=== PATIENT | male | born 1945 ===

== ENCOUNTER 2017-02-19 22:13 | Inpatient (IN) | payer OTHER, BC ==
[2017-02-19] MEDS ORDERED: ONDANSETRON DISINTEGRATING 4 MG TAB ONE ×2 (22:24→22:36)
[2017-02-19] MEDS ORDERED: ACETAMINOPHEN 500 MG TAB PO ONE (22:34)
[2017-02-19] MEDS ORDERED: ONDANSETRON DISINTEGRATING 4 MG TAB PO ONE (22:34)
[2017-02-19] MEDS ORDERED: ACETAMINOPHEN 500 MG TAB ONE (22:36)
[2017-02-19] MEDS ORDERED: ONDANSETRON 4 MG/2 ML VIAL IVP ONE (22:56)
--- NOTE | 2017-02-19 23:03 | EDPHY ---
H & P Stated Complaint: dizzy, MOSER, urinary freq, dribbling urine, N/V x12h, musc aches Source: Patient, Family Exam Limitations: No limitations - Personal History Current Tetanus/Diphtheria Vaccine: Yes Current Tetanus Diphtheria and Acellular Pertussis (TDAP): Yes Tetanus Vaccine Date: 2009 - Medical/Surgical History Hx Asthma: No Hx Chronic Respiratory Disease: No Hx Diabetes: Yes Hx Cardiac Disease: Yes Hx Renal Disease: No Hx Cirrhosis: No Hx Alcoholism: No Hx HIV/AIDS: No Hx Splenectomy or Spleen Trauma: No Other PMH: divirticulitis, DM, hypertension, enlarged heart, kidney stone HPI/ROS: CHIEF COMPLAINT: Fever, urinary frequency, vomiting, dizziness HISTORY OF PRESENT ILLNESS: Patient complains of sudden onset of fever, urinary frequency, dysuria, dizziness, nausea vomiting. This started sometime today. He has a T-max 102. No chest pain. Some mild headache. No neck pain or stiffness. No shortness of breath. No cough. No abdominal pain. He has been frequently urinating with some dribbling in between episodes of urination. No bright red blood in it. No bloody stools or emesis. The vomiting and nausea worse with change of position of the head. Headache is minimal and not the worst headache of his life. His denies any facial droop or slurred speech. No unilateral complaints. No constipation or diarrhea. No trauma or injury. No other associated complaints or modifying factors. REVIEW OF SYSTEMS: Ten systems reviewed and are negative unless otherwise noted in the HPI PAST MEDICAL HISTORY: Diabetes, dyslipidemia, hypertension, BPH SOCIAL HISTORY: Nonsmoker. Lives at home with his FAMILY HISTORY: Noncontributory EXAMINATION General Appearance: Alert, no distress, actively vomiting. Ill appearing. Head: normocephalic, atraumatic Eyes: Pupils equal and round, no conjunctival pallor or injection ENT, Mouth: Mucous membranes moist. Uvula midline. Airway is widely patent. Neck: Normal inspection, supple, non-tender. Trachea midline. Respiratory: Lungs are clear to auscultation. No wheezing, rhonchi or crackles. Cardiovascular: Regular rate and rhythm. No murmur. Pulses intact distally. Gastrointestinal: Obese Abdomen is soft and nontender. No distension rigidity. No CVA tenderness. Neurological: GCS 15. A&O, nonfocal, normal gait. No pronator drift. No dysmetria. Skin: Warm and dry, no rash. No petechiae or purpura. Extremities: Nontender, no pedal edema Psychiatric: Mood and affect normal DIFFERENTIAL DIAGNOSES: Including but not limited to sepsis, UTI, vertigo, stroke, pneumonia, enteritis , diverticulitis, colitis, gastroenteritis, pyelonephritis MDM: 10:58 p.m. Dizziness, nausea vomiting, fever, urinary frequency and dysuria. Patient was tachycardic and febrile, thus I did immediately order sepsis workup. This includes blood cultures, lactic acid, urine culture, chest x-ray. He is not hypotensive. He is not currently tachypneic. He was actively vomiting with change of position of his head. He has no meningismus. He has no chest pain. I did discuss the case immediately with Dr. Alarcon, and I notified her that he does meet SIRS criteria and she should evaluate the patient. She is currently at bedside with him at this time. 11:20 p.m. Chest x-ray does reveal mild congestive heart failure, thus we will proceed cautiously with IV fluid until the lactic acid returns. Plan for DC the IV fluid if the lactic acid is normal. 12:10 a.m. Leukocytosis with no definite pneumonia. Troponin is very slightly elevated but he still complains of no chest pain of any kind. I suspect this is due to the heart failure as his BNP is greater than a 1000. There is some evidence of edema on the chest x-ray. Lactic acid was 2.2 initially, we will recheck this after the 1st L IV fluid. Urinalysis is pending as he has not been able to urinate. I have ordered a quick cath for the patient. Plan for Rocephin following the urine and urine culture. Discussed the case with Dr. Cesar. He will admit the patient to his service. Monitor the urinalysis for results. If this is negative will consider CT scan of the abdomen and pelvis. He remains normotensive with a nausea but no active vomiting. No acute distress. No encephalopathy. SUPERVISION: Patient was evaluated in conjunction with the supervising physician. Please see their note for details. (Omar Armstrong) Constitutional: Initial Vital Signs Temperature (C) 101.3 F H 02/19/17 22:15 Heart Rate 110 H 02/19/17 22:15 Respiratory Rate 18 02/19/17 22:15 Blood Pressure 151/105 H 02/19/17 22:15 O2 Sat (%) 92 02/19/17 22:15 O2 Delivery Mode Nasal Cannula O2 (L/minute) 2 Allergies/Adverse Reactions: winter chromate Allergy (Severe, Uncoded 01/27/12 16:32) STOPPED BREATHING Home Medications: Medication Instructions Recorded Allopurinol [Allopurinol 300 MG 300 mg PO BID 08/30/13 (RX)] Aspirin [Aspirin 81mg (OTC)] 81 mg PO DAILY 08/30/13 Carvedilol [Coreg (RX)] 25 mg PO BIDMEAL 08/30/13 Cyanocobalamin (Vitamin B-12) 1,000 mcg PO DAILY 08/30/13 [Vitamin B-12] Amoxicillin 2,000 mg PO ONCE PRN 02/20/17 Atorvastatin Calcium [Lipitor 10 10 mg PO HS 02/20/17 mg (*)] FLUoxetine [Prozac 20 MG (*)] 40 mg PO DAILY 02/20/17 Herbals/Supplements -Info Only 1 ea PO DAILY 02/20/17 Insulin Glargine,Hum.rec.anlog 100 unit SQ HS 02/20/17 [Basaglar Kwikpen U-100] Insulin Lispro [humALOG LISPRO 100 30 unit SC TIDMEAL 02/20/17 units/ml (*)] Lisinopril [Zestril 30 mg] 30 mg PO DAILY 02/20/17 Tamsulosin HCl [Flomax 0.4 MG (*)] 0.4 mg PO DAILY 02/20/17 Zolpidem Tartrate [Zolpidem 6.25 mg PO HS 02/20/17 Tartrate ER] amLODIPine BESYLATE [Amlodipine 5 mg PO DAILY 02/20/17 Besylate] Medical Decision Making Other Provider: ED PA DICTATION I evaluated and participated in the management of the patient. I also evaluated the patient independently. My co-signature indicates that I have reviewed this chart and I agree with the findings and plan of care as documented. My personal H&P findings include: This is a 71-year-old man with multiple medical problems who presents with fever, weakness, irritative voiding symptoms. He also has associated dizziness with positional changes. I have examined him and he has a nontender abdomen. He likely has urinary tract infection. He could have a concomitant CHF exacerbation. He will be admitted to the hospitalist service. (Latesha Alarcon) - Data Points Laboratory Results: Laboratory Results 02/19/17 23:05 02/19/17 23:05 Medications Given: Discontinued Medications Acetaminophen (Tylenol) 1,000 mg PO EDNOW ONE Stop: 02/19/17 22:35 Last Admin: 02/19/17 22:43 Dose: 1,000 mg Sodium Chloride (Ns) 1,000 mls @ 0 mls/hr IV ONCE ONE PRN Reason: Wide Open Stop: 02/19/17 23:16 Last Admin: 02/19/17 23:15 Dose: 1,000 mls Ceftriaxone Sodium/Dextrose (Rocephin 1 Gm (Premix)) 50 mls @ 100 mls/hr IV EDNOW ONE PRN Reason: Protocol Stop: 02/20/17 00:36 Last Admin: 02/20/17 00:35 Dose: 50 mls Ceftriaxone Sodium/Dextrose (Rocephin 1 Gm (Premix)) 50 mls @ 100 mls/hr IV DAILY GRADY PRN Reason: Protocol Stop: 03/22/17 08:59 Last Admin: 02/20/17 10:02 Dose: 50 mls Insulin Human Lispro (Humalog Lispro) 6 unit SC ONCE ONE Stop: 02/20/17 22:01 Last Admin: 02/20/17 21:59 Dose: 6 units Ondansetron HCl (Zofran Odt) 8 mg PO EDNOW ONE Stop: 02/19/17 22:35 Last Admin: 02/19/17 22:43 Dose: 8 mg Ondansetron HCl (Zofran) 4 mg IVP EDNOW ONE Stop: 02/19/17 22:57 Last Admin: 02/19/17 23:12 Dose: 4 mg Departure - Departure Disposition: [facility] Inpatient Acute Clinical Impression: Urinary tract infection Qualifiers: Urinary tract infection type: acute cystitis Hematuria presence: without hematuria Qualified Code(s): N30.00 - Acute cystitis without hematuria Sepsis Qualifiers: Sepsis type: sepsis due to unspecified organism Qualified Code(s): A41.9 - Sepsis, unspecified organism Condition: Good
--- NOTE | 2017-02-19 23:12 | CPEKG ---
Heart Rate: 70 RR Interval: 857 P-R Interval: 164 QRSD Interval: 154 QT Interval: 444 QTC Interval: 480 P Bishop: 51 QRS Bishop: -87 T Wave Bishop: 83 EKG Severity - ABNORMAL ECG - EKG Impression: SINUS RHYTHM EKG Impression: SUPRAVENTRICULAR BIGEMINY EKG Impression: RBBB AND LAFB EKG Impression: PROBABLE LEFT VENTRICULAR HYPERTROPHY Electronically Signed By: Latesha Alarcon 20-Feb-2017 00:52:50
[2017-02-19] MEDS ORDERED: NS 1,000 ML IV ONE (23:15)
[2017-02-19 23:37] LABS: % IMMATURE GRANULYOCYTES 0.4 % (0.0-1.1); ABSOLUTE IMMATURE GRANULOCYTES 0.07 10^3/uL (0.00-0.10); ADD DIFF? NO; ADD MORPH? NO; ADD SCAN? NO; ATYPICAL LYMPHOCYTE FLAG 10 (0-99); FRAGMENT RBC FLAG 0 (0-99); HEMATOCRIT 44.9 % (40.0-51.0); HEMOGLOBIN 15.3 g/dL (13.7-17.5); LEFT SHIFT FLG 10 (0-99); LIPEMIA HEMOLYSIS FLAG 90 (0-99); MEAN CELL HEMOGLOBIN CONCENTR. 34.1 g/dL (32.4-36.7); MEAN CELL VOLUME 93.9 fL (81.5-99.8); MEAN PLATELET VOLUME 10.5 fL (8.7-11.7); PLATELET CLUMPS FLAG 10 (0-99); PLATELET COUNT 242 10^3/uL (150-400); RED BLOOD CELL COUNT 4.78 10^6/uL (4.40-6.38); RED CELL DISTRIBUTION WIDTH 13.5 % (11.5-15.2)
[2017-02-19 23:46] LABS: INR 1.12 (0.83-1.16); PROTIME(PATIENT) 14.3 SEC (12.0-15.0)
[2017-02-19 23:47] LABS: APTT 33.6 SEC (23.0-38.0)
[2017-02-19 23:50] LABS: ANION GAP 15 mEq/L (8-16); CARBON DIOXIDE 20 mEq/l (22-31); CHLORIDE 101 mEq/L (97-110); CREATININE 1.2 mg/dL (0.7-1.3); GLUCOSE 190 mg/dL (70-100); POTASSIUM 4.4 mEq/L (3.5-5.2); SODIUM 136 mEq/L (134-144)
[2017-02-19 23:51] LABS: ALANINE AMINOTRANSFERASE 38 IU/L (21-72); ALBUMIN 4.3 g/dL (3.5-5.0); ALKALINE PHOSPHATASE 93 IU/L (38-126); ASPARTATE AMINOTRANSFERASE 23 IU/L (17-59); BILIRUBIN,TOTAL 1.1 mg/dL (0.1-1.4); BILIRUBIN-CONJUGATED 0.3 mg/dL (0.0-0.5); BILIRUBIN-UNCONJUGATED 0.8 mg/dL (0.0-1.1); CALCIUM 10.4 mg/dL (8.5-10.4); GLOMERULAR FILTRATION RATE 59; TOTAL PROTEIN 8.1 g/dL (6.3-8.2)
[2017-02-20 00:02] LABS: TROPONIN I 0.063 ng/mL (0-0.034)
[2017-02-20 00:11] LABS: LACGHOST ORDER
[2017-02-20 00:46] LABS: COLOR YELLOW; LEUKOCYTE ESTERASE,URINE 3+ (NEGATIVE); NITRITE,URINE POSITIVE (NEGATIVE)
[2017-02-20] MEDS ORDERED: oxyCODONE IR 5 MG TAB PO PRN (00:46)
[2017-02-20] MEDS ORDERED: ONDANSETRON 4 MG/2 ML VIAL IVP PRN (00:46)
[2017-02-20] MEDS ORDERED: ONDANSETRON DISINTEGRATING 4 MG TAB PO PRN (00:46)
[2017-02-20 01:06] LABS: BACTERIA 3+ /hpf (NONE SEEN); MUCUS TRACE /lpf (NONE-1+); RBC,URINE 50-182 /hpf (0-3); WBC,URINE 50-182 /hpf (0-3)
[2017-02-20] MEDS ORDERED: D50W 25 GM/50 ML SYR IVP PRN (01:10)
--- NOTE | 2017-02-20 01:48 | GHP ---
[f rep st] HISTORY AND PHYSICAL DATE OF ADMISSION: 02/20/2017 CHIEF COMPLAINT: Fever. HISTORY OF PRESENT ILLNESS: This is a 71-year-old man with a history of diabetes, BPH, who presents with fever. This started acutely this evening. It was associated with almost constant dribbling o f urine, which is atypical for him. He does take medications for BPH. Also associated with dizzine ss as well as a few rounds of nonbloody emesis. He notes that he has no abdominal pain. He does scherer ve a headache but no neck pain or pain in his neck when he moves his head. He coughed once, but thi s has not been a persistent issue for him. He is not having any chest pain, either. The patient is taking amoxicillin for recent dental extraction. PAST MEDICAL/SURGICAL HISTORY: 1. Diabetes mellitus type 2. 2. Diverticulitis. 3. Fatty liver. 4. Hypertension. 5. Gout. 6. BPH. 7. "Enlarged heart.". MEDICATIONS: Please see medication reconciliation. ALLERGIES: Zinc chromate. SOCIAL HISTORY: Does not drink or smoke. FAMILY HISTORY: Both of his parents are . REVIEW OF SYSTEMS: 10-point review of systems is conducted and is negative except per HPI. PHYSICAL EXAMINATION: VITAL SIGNS: Initial vitals showed blood pressure of 151/105, heart rate 110 , respiration rate 18, satting 92% on room air. Temperature is 38.5. GENERAL: The patient is a pl easant obese man who appears comfortable, in no acute distress. HEENT: Shows mucous membranes to b e moist. CARDIOVASCULAR : Regular rate and rhythm. There are no murmurs, rubs, or gallops. PULMO NARY: Shows lungs to be clear to auscultation bilaterally. ABDOMEN: Soft. He is nontender to pal pation throughout all 4 quadrants. He has normal bowel sounds. This is an obese abdomen. SKIN: No rash. : No Dave. NEUROLOGIC: Shows him to be alert and oriented x3. He is moving all extrem ities. PSYCHIATRIC: Shows him to have a normal mood and affect. [place]S: [place] [address]. INR is 1.1. Initial lactate was 2.2, down to 1.4 on repeat. Bicarb 2 0, glucose 190. Troponin 0.063. BNP is 1100. Urinalysis shows positive nitrates, 2+ blood, 3+ cristino kocyte esterase. DATA: 1. I discussed this with Omar Armstrong in the emergency department. We will admit to med/surg with telemetry monitoring. 2. EKG, which I personally viewed and interpreted, shows him to have a right bundle branch block an d left anterior fascicular block. This is sinus rhythm. He is having premature beats. He is in wh at appears to be atrial bigeminy. 3. Chest x-ray, which I personally viewed and interpreted, shows borderline enlarged heart. He has engorged pulmonary vasculature. IMPRESSION AND PLAN: A 71-year-old man presents with sepsis. 1. Sepsis: No evidence of shock. He has received 1 L of fluid with marked improvement in his levar ls. I will not give him any more fluid if he is hemodynamically stable, lung moore already show allen rderline congestive heart failure. Source is presumed to be urine at this point. 2. Urinary tract infection: Cell counts are still pending, though initial UA appears consistent wi th this, as does his history. He has received Rocephin in the ED. I will continue this. I do note that he has been taking amoxicillin which raises the concern for resistant organism. I do not see any resistant organisms in his chart, however. We will follow closely and consider broadening antib iotics if he shows any signs of instability. 3. Elevated troponin: He is not having chest pain. I suspect that this is demand. I will check a nother troponin in the morning. Nothing acutely ischemic on his EKG. 4. History of diabetes mellitus type 2: We will check his blood sugars, provide him with a correct ional insulin. He is mildly hyperglycemic on presentation. 5. Hypertension: Will continue his home medications. 6. BPH: Home medications. 7. Code status is full. 8. Venous thromboembolism risk is high. I will give him Lovenox. 9. Nausea, vomiting: These are much better after receiving Zofran in the emergency department. /[id number]/MODL
[2017-02-20] MEDS: TEMAZEPAM 15 MG CAP PO PRN (01:56)
[2017-02-20 05:25] LABS: % IMMATURE GRANULYOCYTES 0.4 % (0.0-1.1); ABSOLUTE IMMATURE GRANULOCYTES 0.06 10^3/uL (0.00-0.10); ADD DIFF? NO; ADD MORPH? NO; ADD SCAN? NO; ATYPICAL LYMPHOCYTE FLAG 0 (0-99); FRAGMENT RBC FLAG 0 (0-99); HEMATOCRIT 39.5 % (40.0-51.0); HEMOGLOBIN 13.2 g/dL (13.7-17.5); LEFT SHIFT FLG 10 (0-99); LIPEMIA HEMOLYSIS FLAG 80 (0-99); MEAN CELL HEMOGLOBIN CONCENTR. 33.4 g/dL (32.4-36.7); MEAN CELL VOLUME 95.9 fL (81.5-99.8); MEAN PLATELET VOLUME 10.3 fL (8.7-11.7); PLATELET CLUMPS FLAG 20 (0-99); PLATELET COUNT 192 10^3/uL (150-400); RED BLOOD CELL COUNT 4.12 10^6/uL (4.40-6.38); RED CELL DISTRIBUTION WIDTH 13.7 % (11.5-15.2)
[2017-02-20 05:47] LABS: ALANINE AMINOTRANSFERASE 32 IU/L (21-72); ALBUMIN 3.4 g/dL (3.5-5.0); ALKALINE PHOSPHATASE 71 IU/L (38-126); ANION GAP 9 mEq/L (8-16); ASPARTATE AMINOTRANSFERASE 17 IU/L (17-59); BILIRUBIN,TOTAL 1.2 mg/dL (0.1-1.4); CALCIUM 9.1 mg/dL (8.5-10.4); CARBON DIOXIDE 23 mEq/l (22-31); CHLORIDE 102 mEq/L (97-110); CREATININE 1.4 mg/dL (0.7-1.3); GLOMERULAR FILTRATION RATE 50; GLUCOSE 214 mg/dL (70-100); POTASSIUM 4.8 mEq/L (3.5-5.2); SODIUM 134 mEq/L (134-144); TOTAL PROTEIN 6.5 g/dL (6.3-8.2)
[2017-02-20 05:55] LABS: TROPONIN I 0.088 ng/mL (0-0.034)
[2017-02-20] MEDS: ACETAMINOPHEN 325 MG TAB PO PRN ×2 (08:14→23:32)
[2017-02-20] MEDS: INSULIN LISPRO 100 UNIT/ML SC SCH ×5 (08:14→17:39)
[2017-02-20] MEDS: ENOXAPARIN 40 MG/0.4 ML SYR SC SCH (10:08)
[2017-02-20] MEDS ORDERED: NS 1,000 ML IV SCH (11:45)
--- NOTE | 2017-02-20 14:31 | HOSPPROG ---
Hospitalist Progress Note Assessment/Plan: * Sepsis due to UTI -non-lactose manager spanish -will change abx to Zosyn pending culture * ARF -continue IVF -check renal US * BPH - continue Flomax * HTN -continue Norvasc, Coreg -hold lisinopril due to creatinine elevation * Borderline troponin -suspect strain due to sepsis -check ECHO -consider eventual stress testing (lots of risk factors) * DM II -home insulin * Morbid obesity BMI 40 Subjective: Lots of dribbling of urine, loss of control Objective: Vital Signs Temp Pulse Resp BP Pulse Ox 36.6 C 69 19 142/75 H 88 L 02/20/17 10:58 02/20/17 10:58 02/20/17 10:58 02/20/17 10:58 02/20/17 12:08 Laboratory Results 02/20/17 05:11 02/20/17 05:11 02/19/17 02/20/17 02/21/17 05:59 05:59 05:59 Intake Total 1100 Output Total 150 Balance 950 PT 14.3 SEC (12.0-15.0) 02/19/17 23:05 INR 1.12 (0.83-1.16) 02/19/17 23:05 CXR viewed, my personal interpretation is - possible CHF EKG viewed, my personal interpretation is - bigeminy, no ischemic changes - Physical Exam Constitutional: no apparent distress, appears nourished, not in pain Cardiovascular: regular rate and rhythym, no murmur, rub, or gallop Respiratory: no respiratory distress, no rales or rhonchi, clear to auscultation Gastrointestinal: normoactive bowel sounds, soft, non-tender abdomen, no palpable masses Skin: no rashes or abrasions, no fluctuance, no induration Neurologic: AAOx3, sensation intact bilaterally Psychiatric: interacting appropriately, not anxious, not encephalopathic, thought process linear ICD10 Worksheet Patient Problems: Problems Problem Status Onset Diverticulitis Acute
[2017-02-20] MEDS: PIPERACILLIN/TAZO 4.5 GM/DEX 100 ML IV SCH ×2 (14:43→20:51)
[2017-02-20] MEDS: CARVEDILOL 25 MG TAB PO SCH (17:38)
[2017-02-20] MEDS: ATORVASTATIN CALCIUM 10 MG TAB PO SCH (19:55)
[2017-02-20] MEDS: ALLOPURINOL 300 MG TAB PO SCH (19:55)
[2017-02-20] MEDS: INSULIN GLARGINE 100 UNITS/ML SYRINGE SC SCH (20:50)
[2017-02-20 20:58] LABS: GLUCOSE 289 mg/dL (70-100)
[2017-02-20] MEDS ORDERED: INSULIN GLARGINE HUM REC ANLOG 100 UNIT SQ SCH (21:00)
[2017-02-20] MEDS ORDERED: [UNRECOGNIZED DRUG - OTHER] SQ SCH (21:00)
[2017-02-20] MEDS ORDERED: ZOLPIDEM TARTRATE 6.25 MG PO SCH (21:00)
[2017-02-20 21:33] LABS: ANION GAP 11 mEq/L (8-16); CALCIUM 8.8 mg/dL (8.5-10.4); CARBON DIOXIDE 21 mEq/l (22-31); CHLORIDE 101 mEq/L (97-110); CREATININE 1.5 mg/dL (0.7-1.3); GLOMERULAR FILTRATION RATE 46; POTASSIUM 4.9 mEq/L (3.5-5.2); SODIUM 133 mEq/L (134-144)
[2017-02-20] MEDS ORDERED: INSULIN LISPRO 100 UNIT/ML SC ONE (22:00)
[2017-02-20] MEDS: ZOLPIDEM TARTRATE 5 MG TAB PO SCH (22:02)
[2017-02-20] MEDS ORDERED: K BICARB/NA BICARB/CITAC/ALKA 2 TAB/PKT PO PRN (23:21)
[2017-02-21 05:01] LABS: % IMMATURE GRANULYOCYTES 0.4 % (0.0-1.1); ABSOLUTE IMMATURE GRANULOCYTES 0.05 10^3/uL (0.00-0.10); ADD DIFF? NO; ADD MORPH? NO; ADD SCAN? NO; ATYPICAL LYMPHOCYTE FLAG 0 (0-99); FRAGMENT RBC FLAG 0 (0-99); HEMATOCRIT 38.1 % (40.0-51.0); HEMOGLOBIN 12.5 g/dL (13.7-17.5); LEFT SHIFT FLG 0 (0-99); LIPEMIA HEMOLYSIS FLAG 80 (0-99); MEAN CELL HEMOGLOBIN 31.8 pg (27.9-34.1); MEAN CELL HEMOGLOBIN CONCENTR. 32.8 g/dL (32.4-36.7); MEAN CELL VOLUME 96.9 fL (81.5-99.8); MEAN PLATELET VOLUME 10.3 fL (8.7-11.7); PLATELET CLUMPS FLAG 20 (0-99); PLATELET COUNT 172 10^3/uL (150-400); RED BLOOD CELL COUNT 3.93 10^6/uL (4.40-6.38); RED CELL DISTRIBUTION WIDTH 13.8 % (11.5-15.2)
[2017-02-21 05:19] LABS: ANION GAP 9 mEq/L (8-16); CALCIUM 8.8 mg/dL (8.5-10.4); CARBON DIOXIDE 23 mEq/l (22-31); CHLORIDE 104 mEq/L (97-110); CREATININE 1.5 mg/dL (0.7-1.3); GLOMERULAR FILTRATION RATE 46; GLUCOSE 170 mg/dL (70-100); POTASSIUM 4.6 mEq/L (3.5-5.2); SODIUM 136 mEq/L (134-144)
[2017-02-21] MEDS: PIPERACILLIN/TAZO 4.5 GM/DEX 100 ML IV SCH (06:33)
[2017-02-21] MEDS ORDERED: NON-FORMULARY NEW DRUG (Cyanocobalamin (Vitamin B-12) [Vitamin B-12] 1,000 MCG) PO SCH (09:00)
[2017-02-21] MEDS: ASPIRIN 81 MG CHEWABLE TAB PO SCH (11:43)
[2017-02-21] MEDS: CARVEDILOL 25 MG TAB PO SCH ×2 (11:43→16:10)
[2017-02-21] MEDS: TAMSULOSIN HCL 0.4 MG CAP PO SCH (11:43)
[2017-02-21] MEDS: ALLOPURINOL 300 MG TAB PO SCH ×2 (11:43→21:47)
[2017-02-21] MEDS: CYANO/VITAMIN B12 1000 MCG TAB PO SCH (11:44)
[2017-02-21] MEDS: FLUoxetine 20 MG CAP PO SCH (11:44)
[2017-02-21] MEDS: ENOXAPARIN 40 MG/0.4 ML SYR SC SCH (11:45)
[2017-02-21] MEDS: ACETAMINOPHEN 325 MG TAB PO PRN ×2 (11:58→21:47)
[2017-02-21] MEDS: INSULIN LISPRO 100 UNIT/ML SC SCH ×6 (12:10→16:11)
--- NOTE | 2017-02-21 13:38 | HOSPPROG ---
Hospitalist Progress Note Assessment/Plan: * Sepsis due to UTI - Ecoli -sensitive to ceftriaxone * ARF - follow -renal US negative * BPH - continue Flomax * HTN -continue Norvasc, Coreg -hold lisinopril due to creatinine elevation * Borderline troponin -suspect strain due to sepsis -ECHO pending -patient reports chest pain with any activity around house -had cath 3-4 year ago at [facility] without intervention -check stress test in am * DM II -home insulin * Morbid obesity BMI 40 Subjective: no new complaints. Objective: Vital Signs Temp Pulse Resp BP Pulse Ox 36.8 C 80 17 165/80 H 94 02/21/17 12:00 02/21/17 12:00 02/21/17 12:00 02/21/17 12:00 02/21/17 12:00 Laboratory Results 02/21/17 04:38 02/21/17 04:38 02/20/17 02/21/17 02/22/17 05:59 05:59 05:59 Intake Total 1100 3028 1297 Output Total 150 200 750 Balance 950 2828 547 PT 14.3 SEC (12.0-15.0) 02/19/17 23:05 INR 1.12 (0.83-1.16) 02/19/17 23:05 - Physical Exam Constitutional: no apparent distress, appears nourished, not in pain Cardiovascular: regular rate and rhythym, no murmur, rub, or gallop Respiratory: no respiratory distress, no rales or rhonchi, clear to auscultation Gastrointestinal: normoactive bowel sounds, soft, non-tender abdomen, no palpable masses Skin: no rashes or abrasions, no fluctuance, no induration Neurologic: AAOx3, sensation intact bilaterally Psychiatric: interacting appropriately, not anxious, not encephalopathic, thought process linear ICD10 Worksheet Patient Problems: Problems Problem Status Onset Sepsis Acute Urinary tract infection Acute Diverticulitis Acute
[2017-02-21] MEDS ORDERED: INSULIN LISPRO 100 UNIT/ML SC ONE (21:30)
[2017-02-21] MEDS: TEMAZEPAM 15 MG CAP PO PRN (21:47)
[2017-02-21] MEDS: ATORVASTATIN CALCIUM 10 MG TAB PO SCH (21:47)
[2017-02-21] MEDS: INSULIN GLARGINE 100 UNITS/ML SYRINGE SC SCH (21:49)
[2017-02-21] MEDS: ZOLPIDEM TARTRATE 5 MG TAB PO SCH (22:01)
[2017-02-22] MEDS: ACETAMINOPHEN 325 MG TAB PO PRN (03:31)
[2017-02-22 05:12] LABS: % IMMATURE GRANULYOCYTES 0.3 % (0.0-1.1); ABSOLUTE IMMATURE GRANULOCYTES 0.02 10^3/uL (0.00-0.10); ADD DIFF? NO; ADD MORPH? NO; ADD SCAN? NO; ATYPICAL LYMPHOCYTE FLAG 0 (0-99); FRAGMENT RBC FLAG 0 (0-99); HEMATOCRIT 41.9 % (40.0-51.0); LEFT SHIFT FLG 0 (0-99); LIPEMIA HEMOLYSIS FLAG 80 (0-99); MEAN CELL HEMOGLOBIN 31.8 pg (27.9-34.1); MEAN CELL HEMOGLOBIN CONCENTR. 33.4 g/dL (32.4-36.7); MEAN CELL VOLUME 95.2 fL (81.5-99.8); MEAN PLATELET VOLUME 10.9 fL (8.7-11.7); PLATELET CLUMPS FLAG 10 (0-99); PLATELET COUNT 168 10^3/uL (150-400); RED CELL DISTRIBUTION WIDTH 13.4 % (11.5-15.2)
[2017-02-22 05:26] LABS: ANION GAP 9 mEq/L (8-16); CALCIUM 9.5 mg/dL (8.5-10.4); CARBON DIOXIDE 23 mEq/l (22-31); CHLORIDE 103 mEq/L (97-110); CREATININE 1.1 mg/dL (0.7-1.3); GLOMERULAR FILTRATION RATE > 60; GLUCOSE 172 mg/dL (70-100); POTASSIUM 4.4 mEq/L (3.5-5.2); SODIUM 135 mEq/L (134-144)
[2017-02-22] MEDS: FLUoxetine 20 MG CAP PO SCH (08:58)
[2017-02-22] MEDS: TAMSULOSIN HCL 0.4 MG CAP PO SCH (08:58)
[2017-02-22] MEDS: CARVEDILOL 25 MG TAB PO SCH ×2 (08:58→18:58)
[2017-02-22] MEDS: CYANO/VITAMIN B12 1000 MCG TAB PO SCH (08:58)
[2017-02-22] MEDS: INSULIN LISPRO 100 UNIT/ML SC SCH ×6 (08:59→19:00)
[2017-02-22] MEDS: ENOXAPARIN 40 MG/0.4 ML SYR SC SCH ×2 (08:59→20:44)
[2017-02-22] MEDS: ALLOPURINOL 300 MG TAB PO SCH ×2 (08:59→20:44)
[2017-02-22] MEDS: ASPIRIN 81 MG CHEWABLE TAB PO SCH (09:01)
--- NOTE | 2017-02-22 09:50 | ECHO ---
[id number] + + [address] : : [place] [address] : : [phone] + + Adult Echocardiographic Report + ------+ :Name: FRANCIS CARLOS GStudy Date: 02/22/2017 07:49 AM : : Hospital Admission [facility]: [id number] :: 1945 Gender: Male Height: 71 in : :Age: 71 yrs Race: WH,PTD Weight: 296 lb : :Reason For Study: Eval LV Fx : : BSA: 2.5 meters 2 : :History: Sepsis, Fever, Hypoxia, LE Edema : + ------+ MMode/2D Measurements \T\ Calculations IVSd: 1.3 cm LVIDd: 5.7 cm FS: 35.8 % Ao root diam: 3.0 cm LVPWd: 1.5 cm LVIDs: 3.7 cm EDV(Teich): 162.5 ml ACS: 2.3 cm ESV(Teich): 57.4 ml EF(Teich): 64.6 % Normal Measurement Values: + + :LVIDd (3.5-5.7cm) IVSd (0.6-1.1cm) LVPWd (0.6-1.1cm) Aortic Root (2.0-3.7cm)Left Atrium (1.5-4.0cm): :LV Vol(d) (76-115ml) LV Vol(s) (29-48ml) Ejec Fraction (50-65%)PV Juan M (0.6- 1.2m/s) TV Juan M (0.4-1.0m/s) : :MV E Juan M (0.8-1.0m/s)MV A Juan M (0.3-1.0m/s)LVOT Juan M (0.7-1.2m/s) Asc Ao Juan M ( 0.9-1.8m/s) : + + Doppler Measurements \T\ Calculations MV E max juan m: Ao V2 max: LV V1 max: MR max juan m: 116.0 cm/sec 127.0 cm/sec 80.9 cm/sec 442.7 cm/sec MV A max juan m: Ao max PG: LV V1 max PG: MR max P.7 cm/sec 6.4 mmHg 2.6 mmHg 78.4 mmHg MV E/A: 1.9 PA V2 max: 81.4 cm/sec PA max P.7 mmHg Left Ventricle The left ventricle is normal in size. There is mild concentric left ventricular hypertrophy. The left ventricular ejection fraction is normal. There is Doppler evidence for diastolic dysfunction. Ejection Fraction = 50- 55%. Right Ventricle The right ventricle is normal in size and function. Atria The left atrial size is normal. Right atrial size is normal. Mitral Valve The mitral valve is normal. There is no mitral valve stenosis. There is trace to mild mitral regurgitation. Tricuspid Valve Normal tricuspid valve. There is trace tricuspid regurgitation. Right ventricular systolic pressure is normal. Aortic Valve The aortic valve is normal in structure and function. There is no aortic stenosis. There is no aortic insufficiency. Pulmonic Valve The pulmonic valve is normal in structure and function. There is no pulmonic valvular regurgitation. Great Vessels The aortic root is normal size. Pericardium/Pleural There is no pericardial effusion. Conclusion A complete two-dimensional transthoracic echocardiogram was performed (2D, M-mode, Doppler and color flow Doppler). The rhythm is atrial fibrillation. There is mild concentric left ventricular hypertrophy. The left ventricular ejection fraction is normal. Ejection Fraction = 50-55%. There is Doppler evidence for diastolic dysfunction. There are no regional wall motion abnormalities however these cannot be excluded based on this study. The right ventricle is normal in size and function. The left atrial size is normal. Right atrial size is normal. Valvular appearance is normal. There is trace to mild mitral regurgitation. There is trace tricuspid regurgitation. Right ventricular systolic pressure is normal. There is no pericardial effusion. Improved EF compared to a prior study from August 2013. Final Reading Physician: Reyna Raymond signed on 02/22/2017 09:49 AM Ordering Physician: Carie Mejía Performed By: Celestino Henderson, RDCS
[2017-02-22] MEDS ORDERED: REGADENOSON 0.4 MG/5 ML SYR IVP ONE (10:25)
--- NOTE | 2017-02-22 11:16 | PDCARST ---
CAR Stress Test Results Type of Stress Test: Lexiscan Indication: cp Description of Procedure: After informed consent was obtained, pt was established to ECG, blood pressure, HR and oximetry monitoring. STRESS EKG AND HEMODYNAMIC DATA. Resting heart rate: 80 BPM. Resting ECG: SR with RBBB. Resting blood pressure: 164/78 mmHg. O2 saturation at rest: 90. Peak heart rate: 82 BPM. Peak blood pressure: 162/74 mmHg. Arrhythmias: Rest: none Stress: PACs/PVCs Recovery: none. Symptoms: The patient experienced no typical symptoms of angina during stress or recovery. Stress/Infusion ECG: No change in rhythm with no significant ST/T wave changes. Stress/infusion O2 saturation: 91 Impression: Uneventful Lexiscan infusion Conclusion: Await nuclear images
[2017-02-22] MEDS ORDERED: FUROSEMIDE 20 MG/2 ML VIAL IVP ONE (14:37)
--- NOTE | 2017-02-22 15:10 | SOAPPROG ---
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 Apparently, there was mention that he may have a ruptured papillary muscle however, in my review of the echocardiogram I do not think that he does have a ruptured papillary muscle. Additionally, clinically, he is not presenting as 1 with acute sudden severe mitral regurgitation. Obviously his congenital deformities complicate the management of his case. We did have anesthesia see the patient in the event that he might need mitral valve surgery. It was their opinion that he would be an extremely difficult airway and there is no guarantee that an airway could be attained. In fact, previous attempts at gaining airway access were not successful. At this point, he is well compensated and there certainly is no clear indication for mitral valve repair. He does have a posterior leaflet vegetation in excess of 1 cm which is fairly soft indication for valve repair or replacement. Overall, I think his best long -term avenue toward success would be a conservative management approach. Therefore, I think he should be treated aggressively with antibiotics. I agree that an echocardiogram at some point later this week would be prudent. I will order an additional ECG. Ideally I would like to perform a NIMISHA however, I think that this is not a safe procedure to do in this individual. We will follow along. 02/22/17 15:07 Subjective: The patient was seen and examined. Chart was reviewed. I personally reviewed the echocardiogram. Today, he states that he feels well. He is complaining of a slight headache although he states that he has these headaches frequently. He denies symptoms of dyspnea, orthopnea, PND and edema. He notes no chest discomfort. Objective: Vital Signs Temp Pulse Resp BP Pulse Ox 36.7 C 72 16 157/90 H 95 02/22/17 11:59 02/22/17 11:59 02/22/17 11:59 02/22/17 11:59 02/22/17 11:59 Microbiology 02/20/17 00:30 Urine Culture - Final Unspecified Escherichia Coli Laboratory Results 02/22/17 04:47 02/22/17 04:47 02/21/17 02/22/17 02/23/17 05:59 05:59 05:59 Intake Total 3028 1797 Output Total 200 1250 Balance 2828 547 PT 14.3 SEC (12.0-15.0) 02/19/17 23:05 INR 1.12 (0.83-1.16) 02/19/17 23:05 Physical Exam - Physical Exam General Appearance: WD/WN, no apparent distress Neck: non-tender Respiratory: chest non-tender, lungs clear Cardiac/Chest: regular rate, rhythm, systolic murmur (3/6, holosystolic murmur at the left sternal border), No edema, No gallop, No JVD Peripheral Pulses: 2+: carotid (R), carotid (L) Abdomen: non-tender Male Genitalia: deferred Rectal: deferred Extremities: non-tender, other (Small area of splinter hemorrhages in the right hand) Neuro/Psych: no motor/sensory deficits, alert, oriented x 3 ICD10 Worksheet Patient Problems: Problems Problem Status Onset Sepsis Acute Urinary tract infection Acute Diverticulitis Acute
[2017-02-22] MEDS ORDERED: NITROGLYCERIN 0.4 MG BTL SL PRN (15:23)
[2017-02-22] MEDS ORDERED: LISINOPRIL 20 MG TAB PO ONE (16:15)
--- NOTE | 2017-02-22 16:36 | CPEKG ---
Heart Rate: 70 RR Interval: 857 P-R Interval: 168 QRSD Interval: 152 QT Interval: 464 QTC Interval: 501 P Omaha: 63 QRS [place]: -75 T Wave [place]: 83 EKG Severity - ABNORMAL ECG - EKG Impression: SINUS RHYTHM EKG Impression: MULTIFORM VENTRICULAR PREMATURE COMPLEXES EKG Impression: FREQUENT PAC'S SOME CONSECUITIVE EKG Impression: RBBB AND LAFB Electronically Signed By: Leroy Solorzano 23-Feb-2017 16:13:53
--- NOTE | 2017-02-22 17:18 | HOSPPROG ---
Hospitalist Progress Note Assessment/Plan: * Sepsis due to UTI - Ecoli -sensitive to ceftriaxone * ARF - resolved * BPH - continue Flomax * HTN -continue Norvasc, Coreg, resume lisinopril * Chest pain with troponin elevation -suspect strain due to sepsis -stress poor - low EF with wall motion abnormality -cards consulted - d/w Francimark Powers -cardiac cath in am * DM II -home insulin * Morbid obesity BMI 40 Subjective: No new complaints. Objective: Vital Signs Temp Pulse Resp BP Pulse Ox 36.5 C 72 16 187/87 H 90 L 02/22/17 16:00 02/22/17 16:00 02/22/17 16:00 02/22/17 16:21 02/22/17 16:00 Microbiology 02/20/17 00:30 Urine Culture - Final Unspecified Escherichia Coli Laboratory Results 02/22/17 04:47 02/22/17 04:47 02/21/17 02/22/17 02/23/17 05:59 05:59 05:59 Intake Total 3028 1797 720 Output Total 200 1250 Balance 2828 547 720 PT 14.3 SEC (12.0-15.0) 02/19/17 23:05 INR 1.12 (0.83-1.16) 02/19/17 23:05 ECHO - EF better than nuc test, about 50% Lexiscan stress with nuc images - Ef 35%, anterior wall motion down c/w old AL, no reversible - Physical Exam Constitutional: no apparent distress, appears nourished, not in pain Cardiovascular: regular rate and rhythym, no murmur, rub, or gallop, edema (2+) Respiratory: no respiratory distress, no rales or rhonchi, clear to auscultation Gastrointestinal: normoactive bowel sounds, soft, non-tender abdomen, no palpable masses Skin: no rashes or abrasions, no fluctuance, no induration Neurologic: AAOx3, sensation intact bilaterally Psychiatric: interacting appropriately, not anxious, not encephalopathic, thought process linear ICD10 Worksheet Patient Problems: Problems Problem Status Onset Sepsis Acute Urinary tract infection Acute Diverticulitis Acute
[2017-02-22] MEDS: ATORVASTATIN CALCIUM 10 MG TAB PO SCH (20:44)
[2017-02-22] MEDS: ZOLPIDEM TARTRATE 5 MG TAB PO SCH ×2 (20:44→21:49)
[2017-02-22] MEDS: INSULIN GLARGINE 100 UNITS/ML SYRINGE SC SCH (20:47)
--- NOTE | 2017-02-22 21:50 | GCON ---
[f rep st] CONSULTATION CARDIOLOGY CONSULTATION PRIMARY LARGE ANIMAL HUSBANDRY TECHNICIAN: Dr. Scarlett Morris. REASON FOR CONSULTATION: We were asked by Dr. Carie Mejía of [facility] to evaluate Mr. Smith for his episodes of chest pain, minimally elevated troponin. HISTORY OF PRESENT ILLNESS: Mr. Timothy Smith is a 71-year-old male with a history of type 2 diabetes mellitus, BPH, cardiomyopathy and hypertension who was admitted with fever. Approximately 2 days ago he was sawing off branch on a tree. Shortly thereafter, he became quite fatigued and went to lie down. Upon awakening he noted having fever, dizziness, nausea and vomiting. He presented to the emergency room for further evaluation and was found to have a temperature of 101.3 degrees Fahrenheit on admission. Urine was taken and urine cultures have shown an E coli urinary tract infection with sepsis. He has been treated with appropriate antibiotics and reports feeling better from that perspective. With his minimally elevated troponin, further questioning revealed that he has had episodes of pretty significant fatigue with exertion. Some of that he attributes to high blood sugars. He will note an associated chest pressure when he exerts himself more vigorously. He describes discomfort over his bilateral chest with associated dyspnea and fatigue. He will go and lie down, and symptoms typically resolve after a few minutes. He denies any PND, orthopnea, palpitations, presyncope, syncope. PAST MEDICAL HISTORY: 1. Type 2 diabetes mellitus. 2. Diverticulitis. 3. Fatty liver. 4. Hypertension. 5. Gout. 6. BPH. 7. Cardiomyopathy diagnosed in 2013 in the setting of a diverticular flare. His EF was noted to be 20% to 25%. He has followed with Dr. Morris since then and has been told that his EF is back in the 40s. 8. History of left heart catheterization in 2011 that revealed minimal disease. 9. ADEOLA on CPAP. MEDICATIONS: Outpatient medications include: Amlodipine, Ambien, insulin glargine, fluoxetine, atorvastatin, amoxicillin, tamsulosin, lisinopril, insulin lispro, vitamin B12, carvedilol, aspirin, allopurinol. ALLERGIES: To zinc. SOCIAL HISTORY: Patient denies any alcohol or tobacco intake. His , Cris , is present in the room. They live in [place]. FAMILY HISTORY: Both parents are . REVIEW OF SYSTEMS: As per HPI. A complete 10-point review of systems was obtained and is negative except for what is dictated. PHYSICAL EXAM: VITAL SIGNS: BP of 157/90, heart rate of 72, respirations 16, O2 saturation 95% on room air, temp of 98.1 degrees Fahrenheit. GENERAL: He is a very pleasant male in no apparent distress. HEAD: Normocephalic, atraumatic. EYES: PERRL without scleral icterus. HEART: Regular rate and rhythm with no rubs, gallops, or murmurs. LUNGS: Clear. ABDOMEN: Obese, nontender with normoactive bowel sounds. SKIN: Warm and dry without edema present. PSYCH: Normal mood and affect. NEURO: No focal deficits detected. : No Dave present. LABORATORY DATA: CBC with WBC 7.41, hemoglobin 14, hematocrit 41.9, platelet count 168. BMP with sodium 135, potassium 4.4, chloride 103, CO2 of 23, BUN 19 , creatinine 1.1, glucose 172. Troponin at 0.063 and then 0.088. Echocardiogram from 02/20/2017 shows EF of 50% to 55%, mild concentric LVH, diastolic dysfunction, and [id number] MR. 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 A 12-lead ECG, personally interpreted, demonstrates sinus rhythm with likely PACs. IMPRESSION AND PLAN: Mr. Timothy Smith is a 71-year-old male with multiple cardiac risk factors. He is admitted with sepsis and a urinary tract infection. He has been found to have minimally elevated troponin. 1. Chest pain. Patient reports a several month history of off and on chest pain that is suggestive of angina. His nuclear stress test is abnormal. Options were reviewed and patient is agreeable to cardiac catheterization for further evaluation. Risks, benefits, and alternatives reviewed with him. 2. Sepsis. This has resolved. 3. Urinary tract infection. He has completed IV antibiotics and was to be discharged home today for ongoing oral antibiotics. 4. Acute renal failure. His creatinine is 1.1 today. 5. Hypertension. Blood pressure does not appear to be optimally controlled. Will likely need further titration of medications prior to discharge. /[id number]/MODL MTDD
[2017-02-23 05:39] LABS: % IMMATURE GRANULYOCYTES 0.3 % (0.0-1.1); ABSOLUTE IMMATURE GRANULOCYTES 0.03 10^3/uL (0.00-0.10); ADD DIFF? NO; ADD MORPH? NO; ADD SCAN? NO; ATYPICAL LYMPHOCYTE FLAG 20 (0-99); FRAGMENT RBC FLAG 0 (0-99); HEMATOCRIT 42.1 % (40.0-51.0); HEMOGLOBIN 14.3 g/dL (13.7-17.5); LEFT SHIFT FLG 0 (0-99); LIPEMIA HEMOLYSIS FLAG 90 (0-99); MEAN CELL VOLUME 94.2 fL (81.5-99.8); MEAN PLATELET VOLUME 10.4 fL (8.7-11.7); PLATELET CLUMPS FLAG 0 (0-99); PLATELET COUNT 225 10^3/uL (150-400); RED BLOOD CELL COUNT 4.47 10^6/uL (4.40-6.38); RED CELL DISTRIBUTION WIDTH 13.3 % (11.5-15.2)
[2017-02-23 05:48] LABS: INR 1.03 (0.83-1.16); PROTIME(PATIENT) 13.4 SEC (12.0-15.0)
[2017-02-23 05:49] LABS: APTT 29.4 SEC (23.0-38.0)
[2017-02-23 05:54] LABS: ANION GAP 11 mEq/L (8-16); CARBON DIOXIDE 22 mEq/l (22-31); CHLORIDE 103 mEq/L (97-110); CHOLESTEROL 130 mg/dL (140-220); CHOLESTEROL/HDL RATIO 3.33 RATIO (1.00-4.97); GLOMERULAR FILTRATION RATE > 60; GLUCOSE 83 mg/dL (70-100); HIGH DENSITY LIPOPROTEIN 39 mg/dL (40-65); LDL/HDL RATIO 1.54 RATIO (1.00-3.64); LOW DENSITY LIPOPROTEIN 60 mg/dL (80-100); MAGNESIUM 1.8 mg/dL (1.6-2.3); NON-HIGH DENSITY LIPOPROTEIN 91 mg/dL (90-129); POTASSIUM 3.9 mEq/L (3.5-5.2); SODIUM 136 mEq/L (134-144); TRIGLYCERIDE 156 mg/dL (40-150); VERY LOW DENSITY LIPOPROTEINS 31 mg/dL (8-25)
[2017-02-23] MEDS ORDERED: DIAZEPAM 5 MG TAB PO ONE (06:00)
[2017-02-23] MEDS ORDERED: diphenhydrAMINE 25 MG CAP PO ONE ×2 (06:00→10:24)
[2017-02-23] MEDS ORDERED: NS 1,000 ML IV ONE (06:00)
[2017-02-23 06:19] LABS: GLUCOSE 83 mg/dL (70-100)
[2017-02-23] MEDS ORDERED: LISINOPRIL 20 MG TAB PO SCH ×2 (09:00→17:26)
[2017-02-23] MEDS ORDERED: NON-FORMULARY NEW DRUG (Lisinopril [Zestril 30 Mg] 30 MG) PO SCH (09:00)
--- NOTE | 2017-02-23 09:04 | CPEKG ---
Heart Rate: 66 RR Interval: 909 P-R Interval: 172 QRSD Interval: 154 QT Interval: 476 QTC Interval: 499 P Norfolk: 71 QRS Norfolk: -73 T Wave Norfolk: 27 EKG Severity - ABNORMAL ECG - EKG Impression: SINUS RHYTHM EKG Impression: SINUS PAUSE/ARREST WITH ATRIAL ESCAPE EKG Impression: RBBB AND LAFB Electronically Signed By: Leroy Solorzano 23-Feb-2017 16:11:16
[2017-02-23] MEDS: CARVEDILOL 25 MG TAB PO SCH ×2 (09:17→17:10)
[2017-02-23] MEDS ORDERED: DIAZEPAM 5 MG TAB ONE (10:24)
[2017-02-23] MEDS ORDERED: ASPIRIN EC 325 MG TAB PO ONE (10:24)
[2017-02-23] MEDS ORDERED: FAMOTIDINE 20 MG TAB ONE (10:24)
[2017-02-23] MEDS ORDERED: LIDOCAINE 1% 300 MG/30 ML SDV ONE (10:28)
[2017-02-23] MEDS ORDERED: MIDAZOLAM 2 MG/2 ML VIAL ONE (10:29)
[2017-02-23] MEDS ORDERED: IOPAMIDOL (ISOVUE-370) 150 ML BTL IV ONE (10:29)
[2017-02-23] MEDS ORDERED: fentaNYL 100 MCG/2 ML INJ ONE (10:29)
[2017-02-23] MEDS ORDERED: ASPIRIN 325 MG TAB PO ONE (10:30)
[2017-02-23] MEDS ORDERED: FAMOTIDINE 20 MG TAB PO ONE (10:30)
[2017-02-23] MEDS ORDERED: ADENOSINE 90 MG/30 ML VIAL IV ONE ×3 (11:37→11:52)
[2017-02-23] MEDS ORDERED: BIVALIRUDIN 250 MG/5 ML VIAL IV ONE ×2 (11:37→11:50)
[2017-02-23] MEDS ORDERED: ATROPINE SULFATE 1 MG/10 ML SYR ONE (13:58)
[2017-02-23] MEDS ORDERED: LABETALOL HCL 50 MG/10 ML SYR IVP ONE (14:15)
[2017-02-23] MEDS: ASPIRIN 81 MG CHEWABLE TAB PO SCH (16:55)
[2017-02-23] MEDS: ALLOPURINOL 300 MG TAB PO SCH ×2 (16:55→20:35)
[2017-02-23] MEDS: INSULIN LISPRO 100 UNIT/ML SC SCH ×4 (16:56→17:10)
[2017-02-23] MEDS: CYANO/VITAMIN B12 1000 MCG TAB PO SCH (16:56)
[2017-02-23] MEDS: ENOXAPARIN 40 MG/0.4 ML SYR SC SCH ×2 (16:56→20:35)
[2017-02-23] MEDS: FLUoxetine 20 MG CAP PO SCH (16:56)
[2017-02-23] MEDS: TAMSULOSIN HCL 0.4 MG CAP PO SCH (16:58)
--- NOTE | 2017-02-23 17:30 | HOSPPROG ---
Hospitalist Progress Note Assessment/Plan: * Sepsis due to UTI - Ecoli -sensitive to ceftriaxone * ARF - resolved * BPH - continue Flomax * HTN - uncontrolled -continue Norvasc, Coreg, increase lisinopril * Non-ischemic cardiomyopathy - EF improved to 50% -despite CP and abnormal stress test - cath negative * DM II -home insulin * Morbid obesity BMI 40 with ADEOLA -CPAP qhs Subjective: NO new complaints. Objective: Vital Signs Temp Pulse Resp BP Pulse Ox 36.6 C 68 16 133/64 H 95 02/23/17 16:27 02/23/17 16:27 02/23/17 16:27 02/23/17 16:27 02/23/17 16:27 Laboratory Results 02/23/17 05:30 02/23/17 05:30 02/22/17 02/23/17 02/24/17 05:59 05:59 05:59 Intake Total 1797 1200 990 Output Total 1250 850 Balance 547 1200 140 PT 13.4 SEC (12.0-15.0) 02/23/17 05:30 INR 1.03 (0.83-1.16) 02/23/17 05:30 d/w Dr. Richards - cath without stenosis - no stent EKG viewed, my personal interpretation is - sinus, no ischemic st changes - Physical Exam Constitutional: no apparent distress, appears nourished, not in pain Cardiovascular: regular rate and rhythym, no murmur, rub, or gallop Respiratory: no respiratory distress, no rales or rhonchi, clear to auscultation Gastrointestinal: normoactive bowel sounds, soft, non-tender abdomen, no palpable masses Skin: no rashes or abrasions, no fluctuance, no induration Neurologic: AAOx3, sensation intact bilaterally Psychiatric: interacting appropriately, not anxious, not encephalopathic, thought process linear ICD10 Worksheet Patient Problems: Problems Problem Status Onset Sepsis Acute Urinary tract infection Acute Diverticulitis Acute
--- NOTE | 2017-02-23 18:02 | CPIP ---
[f rep st] INVASIVE CARDIAC PROCEDURE DATE OF PROCEDURE: 02/23/2017 PROCEDURE: 1. Coronary angiography. 2. Left ventriculography. 3. Fractional flow reserve of left anterior descending coronary artery. INDICATION: 1. Acute coronary syndrome with elevated troponin. 2. Abnormal nuclear stress test that would be intermediate risk. ACCESS: Patient was prepped and draped in a sterile fashion. 1% lidocaine was used to anesthetize the right inguinal region. A 6-Albanian introducer sheath was placed selectively into the right commo n femoral artery via modified Seldinger technique. CORONARY ANGIOGRAPHY: A 6-Albanian JL4 was advanced to the left main coronary artery and images obtai kj. The left main coronary artery trifurcated into an LAD, ramus, and circumflex coronary arteries . The left main coronary artery appeared free of any significant disease. The left anterior descen ding coronary artery is diffusely diseased in the proximal and mid segments. In the mid one segment , there is a 50% stenosis present, and in the mid 2 segment, there is a segmental 60% to 70% stenosi s present. The first diagonal artery is a moderate-sized vessel. The first diagonal artery is diff usely diseased in the proximal segment. The degree of narrowing is approximately a 60% to 70% in se verity. The ramus coronary artery is a large vessel. The ramus coronary artery had mild luminal ir regularities. There was no stenosis greater than 10% to 15%. The circumflex coronary artery was no ndominant. The circumflex coronary artery had a proximal single, discrete 20% to 30% stenosis prese nt. A 6-Albanian JR4 was advanced to the right coronary artery and images obtained. The right wilson ry artery is dominant. The right coronary artery supplied the proximal 3rd of the inferior wall; th e distal 3rd of the inferior wall was supplied off the left anterior descending coronary artery. Th e right coronary artery had mild diffuse disease throughout. In the mid vessel, there was a segment al 20% to 30% stenosis present, and in the distal vessel there are sequential 20% stenoses present. LEFT VENTRICULOGRAPHY: A 6-Albanian pigtail catheter was advanced into the left ventricle and images obtained. Left ventricle was normal in size with reduced systolic function. Estimated ejection fra ction was 45%. 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 FRACTIONAL FLOW RESERVE OF THE LEFT ANTERIOR DESCENDING CORONARY ARTERY: A 6-Albanian JL 4.5 catheter was advanced to the left main coronary artery and images obtained. Angiography confirmed the prese nce of intermediate grade disease involving the mid left anterior descending coronary artery. An FF R wire was placed in the distal vessel and position verified by angiography. IV adenosine was infus ed, and FFR obtained. The lowest FFR was 0.86 indicating no flow limitation. COMPLICATIONS: None. CONCLUSIONS: 1. Single-vessel coronary artery disease involving the left anterior descending coronary artery. F ractional flow reserve of the left anterior descending coronary artery was 0.86, indicating no flow limitation. 2. Reduced left ventricular systolic function with an estimated ejection fraction 45% and apical ak inesis. 3. Plan is for medical management. /[id number]/MODL
[2017-02-23] MEDS: ATORVASTATIN CALCIUM 10 MG TAB PO SCH (20:35)
[2017-02-23] MEDS: ZOLPIDEM TARTRATE 5 MG TAB PO SCH (20:35)
[2017-02-23] MEDS: INSULIN GLARGINE 100 UNITS/ML SYRINGE SC SCH (20:36)
[2017-02-23] MEDS ORDERED: MELATONIN 3 MG TAB PO SCH (21:00)
[2017-02-24] MEDS: INSULIN LISPRO 100 UNIT/ML SC SCH ×4 (08:11→13:33)
[2017-02-24] MEDS: ALLOPURINOL 300 MG TAB PO SCH (10:13)
[2017-02-24] MEDS: ASPIRIN 81 MG CHEWABLE TAB PO SCH (10:13)
[2017-02-24] MEDS: FLUoxetine 20 MG CAP PO SCH (10:13)
[2017-02-24] MEDS: CARVEDILOL 25 MG TAB PO SCH (10:13)
[2017-02-24] MEDS: CYANO/VITAMIN B12 1000 MCG TAB PO SCH (10:14)
[2017-02-24] MEDS: TAMSULOSIN HCL 0.4 MG CAP PO SCH (10:15)
[2017-02-24] MEDS: ENOXAPARIN 40 MG/0.4 ML SYR SC SCH (10:16)
[2017-02-24 11:29] VITALS: BP 155/75; PULSE 84; RESP 19; TEMP 98.2; O2SAT 92
--- NOTE | 2017-02-24 15:31 | PDCARPN ---
Cardiology Progress Note Chief Complaint: Patient reports no chest pain or pressure, would like to go home. Assessment/Plan: Assessment: 71-year-old male with significant history of type 2 diabetes, BPH, cardiomyopathy and hypertension. Med for hospitalization for sepsis due to UTI. Noted to have mild episode of chest pressure and mild troponin bump. Echocardiogram on 02/20 showed EF 50-55%, mild concentric LVH, diastolic dysfunction, trace to mild MR. MPI study on 02/22 showing EF decreased to 36%, old AK, involving the apex, and inferior wall extending to apex base. Cardiac catheterization done by Dr. Richards on 02/23 showing LAD with diffuse disease, with 2 segments of 60-70% stenosis. Mild comma no flow limiting disease, in the ramus, circumflex, and RCA. LVEF was 45% akinetic apex and aneurysmal. FFR of LAD showed 0.86 reduction of flow past stenosis is comma this is considered non flow limiting. He has been instituted on medication management. Today, he reports no chest pain or shortness of breath. He has had no bleeding issues at his groin site. He has been up in walking the unit without difficulties. Continuous cardiac monitoring showing sinus rhythm occasional PVC , no malignant arrhythmias or pauses. Plan: 1. CAD: Mild troponin bump on admission, cardiac catheterization showing non flow limiting disease. Possible troponin bump to to sepsis. Patient continue on aspirin therapy, carvedilol comma and lisinopril. 2. Cardiomyopathy: Ejection fraction off of cardiac catheterization was 45%, he has been instituted on carvedilol, his lisinopril dosage has been increased to 40 mg p.o. q.day. He appears fairly euvolemic, no diuretic therapy at this time 3. Hypertension: Up titration lisinopril, continue on carvedilol, amlodipine. 4. Hyperlipidemia: Laboratory studies drawn yesterday show LDL adequately suppressed on 60, continue on home dose of atorvastatin. 5. UTI sepsis: Continue antibiotic therapy per hospital services. Patient planning to be discharged home today, post cardiac catheterization discharge instructions went over with the patient including activity restrictions, weight precautions, and medication compliance. Patient has asked to follow up with us in [place], have made him a 2 week follow-up appointment in our office. He has been told that if he has any problems or concerns post discharge he is to notify us or return to the hospital. 02/24/17 15:31 Subjective: Patient reports no further episodes of chest pain, pressure, palpitations, lightheadedness, near syncope or syncopal events Reviewed/Discussed With: multidisciplinary team (Patient RN), other (Dr Richards) Objective: Vital Signs (8 Hrs) Temp Pulse Resp BP Pulse Ox 02/24/17 11:28 36.8 C 84 19 155/75 H 92 02/24/17 08:00 36.8 C 63 16 144/83 H 97 Intake/Output (24 Hrs) 02/23/17 02/24/17 02/25/17 05:59 05:59 05:59 Intake Total 1200 1340 Output Total 1050 Balance 1200 290 Intake: Oral (ml) 1200 990 IV Intake (ml) 350 Output: Urine (ml) 1050 Toilet 850 Urinal 200 Other: Intake Quantity Yes Yes Sufficient Number of Voids Toilet 3 Urinal 1 Number of Stools Toilet 1 1 Result Diagrams: 02/23/17 05:30 02/23/17 05:30 - Physical Exam Constitutional: no apparent distress, obese Ears, Nose, Mouth, Throat: moist mucous membranes Cardiovascular: regular rate and rhythm, pulses symmetric bilat, No no murmurs, No jugular vein distention Peripheral Pulses: 1+: dorsalis-pedis (R), dorsalis-pedis (L), 2+: carotid (R), carotid (L) Respiratory: clear to auscultate bilat, No reduced air movement Gastrointestinal: normoactive bowel sounds Skin: warm, other (Right groin site, catheter insertion site, with no redness swelling drainage ecchymosis or hematoma), No no edema (Trace pedal edema bilateral lower extremity) Neurologic: AAOx3 Psychiatric: cooperative, interactive, following commands ICD10 Worksheet Patient Problems: Problems Problem Status Onset Diverticulitis Acute Sepsis Acute Urinary tract infection Acute
--- NOTE | 2017-02-24 16:51 | GDS ---
[f rep st] DISCHARGE SUMMARY DISCHARGE DIAGNOSES: 1. Sepsis due to Escherichia coli urinary tract infection. 2. Acute renal failure. 3. BPH. 4. Uncontrolled hypertension. 5. Nonischemic cardiomyopathy. 6. Diabetes, type 2. 7. Morbid obesity, BMI 40, with obstructive sleep apnea. HISTORY: The patient is a 71-year-old male who presented with sepsis due to a urinary tract infecti on. Urine culture grew E. coli. This was sensitive to ceftriaxone, but resistant to Keflex, Augmen tin, Zosyn and Levaquin. HOSPITAL COURSE: IV ceftriaxone was continued throughout this hospitalization, and he is improving. I will discharge him on a third generation oral cephalosporin, given the resistance pattern of the E. coli. He did have a troponin bump on presentation, and further questioning revealed predictable chest pain with minor activity that was relieved with rest. He does have a previous cardiac history of nonisc hemic cardiomyopathy, but has not had a cardiac catheterization for many years. Stress testing was pursued, and was abnormal, with concern for a large LA involving the apex and inferior wall, and so Cardiology was consulted. He underwent cardiac catheterization, and he does have nonobstructive cor onary disease. In the LAD, there was a 60% to 70% stenosis. A fractional flow reserve of the LAD w as performed, and no flow limitation was observed, so no stent was placed. He will need ongoing agg ressive risk modification for his coronary artery disease. His low ejection fraction, however, prob ably continues to be due to a nonischemic cardiomyopathy. He does wish to follow up with [facility] as an outpatient, and that has been scheduled. Hypertension was uncontrolled, with very high blood pressures observed once his sepsis resolved. I increased his lisinopril from 30 to 40 mg, and increased his Norvasc from 5 to 10 mg. He will follo w up closely at [facility]. DISCHARGE MEDICATIONS: Please see computerized record for full detailed list. New medications: 1. Omnicef 300 mg p.o. twice daily for 5 more days. 2. Lisinopril 40 mg p.o. daily. 3. Amlodipine 10 mg p.o. daily. ADDITIONAL DISCHARGE INSTRUCTIONS: 1. Standard post cardiac catheterization instructions. 2. Follow up with Dr. Richards; appointment made prior to discharge, per patient request. Greater than 30 minutes' time was spent arranging this discharge. Patient was seen and examined by me on the day of discharge. /[id number]/MODL
== END 2017-02-24 13:47 | disposition home or self-care (01) | DRG 872 ==
LOC: F3E 02-20 00:59 → F2W 02-23 14:43
PROVIDERS: ADMIT Student in an Organized Health Care Education/Training Program; ATTEND Student in an Organized Health Care Education/Training Program
PROC: B2111ZZ Fluoroscopy of Multiple Coronary Arteries using Low Osmolar Contrast (ICD-10-PCS; principal; 2017-02-23)
PROC: B2151ZZ Fluoroscopy of Left Heart using Low Osmolar Contrast (ICD-10-PCS; principal; 2017-02-23)
PROC: 4A023N7 Measurement of Cardiac Sampling and Pressure, Left Heart, Percutaneous Approach (ICD-10-PCS; principal; 2017-02-23)
DX: A41.51 Sepsis due to Escherichia coli [E. coli] (principal); N39.0 Urinary tract infection, site not specified; B96.20 Unspecified Escherichia coli [E. coli] as the cause of diseases classified elsewhere; N17.9 Acute kidney failure, unspecified; I42.9 Cardiomyopathy, unspecified; I25.10 Atherosclerotic heart disease of native coronary artery without angina pectoris; E11.9 Type 2 diabetes mellitus without complications; I10 Essential (primary) hypertension; E78.5 Hyperlipidemia, unspecified; E66.01 Morbid (severe) obesity due to excess calories; Z68.41 Body mass index [BMI] 40.0-44.9, adult; M10.9 Gout, unspecified; N40.0 Benign prostatic hyperplasia without lower urinary tract symptoms; Z79.4 Long term (current) use of insulin; Z87.442 Personal history of urinary calculi
CPT/HCPCS: 82947-QW; 96374; 97116-GP; 97161-GP; 97165-GO; 97535-GO; A9500; C1769; C1887; G8978-GP-CI; G8979-GP-CH; G8979-GP-CI; G8980-GP-CI; G8987-GO-CK; G8988-GO-CI; G8989-GO-CI; J0153; J0461; J0583; J0696; J1644; J1650; J1815; J1940; J2250; J2405; J2543; J2785; J3010; Q9967

== ENCOUNTER → 2017-03-05 | Outpatient (CLI) | payer OTHER, BC | LOC: FIMAGING 15:08 | PROVIDERS: ATTEND Physician Assistant Medical | DX: M79.651 Pain in right thigh (principal) ==

== ENCOUNTER → 2017-07-12 | Outpatient (CLI) | payer OTHER, BC | LOC: BMCIMAGING 14:59 | PROVIDERS: ATTEND Internal Medicine | DX: J98.4 Other disorders of lung (principal); R50.9 Fever, unspecified; I70.0 Atherosclerosis of aorta ==

== ENCOUNTER → 2018-01-02 | Outpatient (CLI) | payer OTHER, BC | LOC: FCPNEURO 23:30 | PROVIDERS: ATTEND Student in an Organized Health Care Education/Training Program | DX: G47.33 Obstructive sleep apnea (adult) (pediatric) (principal); R09.02 Hypoxemia ==

== ENCOUNTER → 2018-11-03 | Outpatient (CLI) | payer OTHER, BC | LOC: BMCIMAGING 15:15 | PROVIDERS: ATTEND Internal Medicine | DX: R05 Cough (principal) ==